=== PATIENT | male | born 1970 | race Caucasian/White ===

== ENCOUNTER 2016-10-14 22:14 | Observation (INO) | payer SELFPAY ==
--- NOTE | ~2016-10-14 | DS ---
Discharge Summary [address] [address] NAME: KAYLIE WATSON : 70 STATUS : DIS Lorri PAT#: [id number] AGE: 46 ADM/REG DATE : 10/15/16 MR#: [id number] REPORT SERV DATE: 10/17/16 DICTATED BY: FANG LAZARO DATE: 10/16/16 REPORT STATUS : Draft TRANSCRIBED BY: MODL DATE: 10/16/16 ADMISSION DATE: 10/15/2016 DISCHARGE DATE: 10/16/2016 DISCHARGE DIAGNOSES: 1. Abdominal pain, uncertain etiology, resolved. 2. Hypotension, resolved. 3. Acute kidney injury, resolved. 4. Leukocytosis, resolved. 5. Bipolar disorder, not otherwise specified. 6. 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 7. Proteinuria. 8. History of hypertension. 9. Chronic obstructive pulmonary disease. 10.Possible seizure disorder. 11.Steatohepatitis with elevated ammonia, controlled on medical therapy. 12.Irritable bowel syndrome. 13.High cholesterol. 14.High triglycerides. 15.Elevated globulins, outpatient SPE needed. OPERATIONS AND PROCEDURES: None. PRESENT ILLNESS: This is a 46-year-old white male, who was triaged in the emergency room on 10/14/2016 at 2214 hours, complaining of abdominal, back, and neck pain. After evaluation in the emergency room, he was found to have acute kidney injury. He was referred to the Hospitalist Service for admission. He was seen by Dr. Manas Raymond and admitted as described on admission history and physical examination. ADDITIONAL HISTORY: Per Dr. Raymond. PHYSICAL EXAMINATION: Per Dr. Raymond. ADMISSION LABORATORY: Per Dr. Raymond. HOSPITAL COURSE: He was admitted by Dr. Raymond with impression: 1. Abdominal pain of unclear etiology. 2. Acute kidney injury. 3. Leukocytosis. 4. Hypotension. 5. Essential hypertension. 6. Chronic obstructive pulmonary disease. 7. Hepatic steatosis. 8. Seizure disorder. 9. Anxiety and depression. Discharge Summary [address] [place]. [address] NAME: KAYLIE WATSON : 70 STATUS : DIS Lorri PAT#: [id number] AGE: 46 ADM/REG DATE : 10/15/16 MR#: [id number] REPORT SERV DATE: 10/17/16 DICTATED BY: FANG LAZARO DATE: 10/16/16 REPORT STATUS : Draft TRANSCRIBED BY: MODIsidro DATE: 10/16/16 10.Irritable bowel syndrome. HOSPITAL COURSE: He was placed in observation on . He was given crystalloid volume resuscitation. His home lisinopril was discontinued. His hospital care was assumed by the undersigned. He was seen by me on 10/15/2016 at approximately 1753 hours. At that time, he indicated that he generally did not feel well. There had been a recent family that he thought contributed to his anxiety and abdominal pain. In addition, he had a recent round of cortical steroids and antimicrobial therapy for an upper respiratory infection. At that time, he had no particular abnormalities on exam. With rehydration, his creatinine had fallen from 2.31 to 1.71. His home medications had not been started on admission. Medication reconciliation was initiated. We discussed his psychiatric history. He is followed by Dr. Corey. It was felt that further inpatient evaluation would be needed, and consultation was placed to Dr. Jarrod Younger. His other treatment was continued. His abdominal pain, at this point, had largely resolved. A CT scan of his abdomen and pelvis had been done in the emergency room and did not show any acute abnormality. It did demonstrate a fatty liver. His liver tests were normal as was a lipase at 116. He was seen by Dr. Jarrod Younger on 10/16/2016. His diagnosis was bipolar disorder, not otherwise specified, and Parkinson's caused by Haldol. He suggested holding Haldol for a week to allow the Parkinson symptoms to subside and to engage Dr. Corey in followup. He also suggested immediate Xanax followed by nighttime Xanax pending followup with Dr. Corey. He was next seen by the undersigned on 10/16/2016 at 1410 hours. He received a dose of Xanax. He thought he was back to his baseline state. His who was present agreed. He had no abdominal pain. His BUN and creatinine had fallen from 32/1.81 to 19/1.07. His white count had fallen from 12.5 to 6, and his ammonia level was 38 notably having been 120 in August of this year. At this point, the patient felt, he could easily manage at home. It is felt that he has achieved a level of improvement and stability where he can be safely discharged home and see Dr. Corey as soon as possible. He will follow up with the [facility], [facility], within one week. Weight loss was encouraged given his medical comorbidities. DISCHARGE MEDICATIONS: His discharge medications are as follows: Xanax 1 mg at bedtime; no Haldol; lactulose 45 mL two to three times daily to maintain greater or equal to two soft stools per day; Keppra 750 mg twice daily; Claritin 10 mg daily; Mevacor 20 mg at bedtime; Prilosec 20 mg twice daily; Seroquel 400 mg at bedtime; ProAir two puffs as needed; Discharge Summary [address] [address] NAME: KAYLIE WATSON : 70 STATUS : DIS Lorri PAT#: [id number] AGE: 46 ADM/REG DATE : 10/15/16 MR#: [id number] REPORT SERV DATE: 10/17/16 DICTATED BY: FANG LAZARO DATE: 10/16/16 REPORT STATUS : Draft TRANSCRIBED BY: CHONG DATE: 10/16/16 Symbicort two puffs twice daily; Flonase nasal spray daily as needed; OTC niacin tablet. He was asked to hold Prinivil until primary care followup next week with a BMP. DD/CHONG Fang Lazaro M.D. / [id number] CC: Bobbi High, ZURDO Corey MD [facility]
--- NOTE | ~2016-10-14 | CN ---
Consultation Report [facility] [address] [place]. [address] NAME: KAYLIE WATSON : 70 STATUS : ADM Lorri PAT#: [id number] AGE: 46 ADM/REG DATE : 10/15/16 MR#: [id number] REPORT SERV DATE: 10/16/16 DICTATED BY: JARROD BLACK DATE: 10/16/16 REPORT STATUS : Draft TRANSCRIBED BY: MODL DATE: 10/16/16 PSYCHIATRIC CONSULTATION DATE OF CONSULTATION: 10/16/2016 I reviewed this patient's current and old medical records. I discussed his status with Dr. Lazaro who is his current hospitalist. HISTORY OF PRESENT ILLNESS: He was admitted with abdominal pain. This has been an ongoing issue for a year or more. I was consulted to address his anxiety and depression. PAST PSYCHIATRIC HISTORY: I previously saw him in consultation on 08/07/2015, when he was again admitted with abdominal pain. He gave a history of recurring depressions, easily provoked, and free-floating anger for many years. Over the years, he has been on a variety of psychotropic medications all of which appear to have questionable or limited efficacy. Currently, he is taking Haldol 5 mg q.a.m., Seroquel 400 mg at bedtime, and Keppra 750 mg b.i.d. He apparently has a questionable seizure disorder. At this time, he is reporting that his anxiety is particularly severe and that it has been so for the past few days or weeks. He said he is afraid to fall asleep at night because he fears he will not wake up. SOCIAL HISTORY: He lives with his significant other, Denia. They have been together for over 20 years. He has two sons. FAMILY HISTORY: His mother suffered from mood swings. There are multiple members of the family with alcoholism. His maternal grandfather committed suicide. MENTAL STATUS: He was cooperative in attitude. I noticed that his arms were stiff and tremulous. His mood was very anxious. His affect was constricted in range. His thinking was logical. He had no delusions. He had no hallucinations. He was oriented to time, place, and person. DIAGNOSIS: Bipolar disorder, NOS. RECOMMENDATIONS: I instructed him to hold the Haldol for about a week or so to allow the parkinsonism to subside. If he is not feeling better by that time, he should call Dr. Corey's office and try to get an early followup psychiatric appointment. In the meantime, I will start him on Xanax 1 mg p.o. at bedtime and I will give him a prescription for #10. He can be discharged to home from a psychiatric viewpoint. BREN/CHONG Jarrod Black M.D. Consultation Report [place] [id number] [place]. [address] NAME: KAYLIE WATSON : 70 STATUS : ADM Lorri PAT#: [id number] AGE: 46 ADM/REG DATE : 10/15/16 MR#: [id number] REPORT SERV DATE: 10/16/16 DICTATED BY: JARROD BLACK DATE: 10/16/16 REPORT STATUS : Draft TRANSCRIBED BY: CHONG DATE: 10/16/16 / [id number] CC: Bobbi High NP
--- NOTE | ~2016-10-14 | HP ---
History And Physical [facility] [address] [facility] [place]. [address] NAME: KAYLIE HARRISON : 70 STATUS : ADM Lorri PAT#: [id number] AGE: 46 ADM/REG DATE : 10/15/16 MR#: [id number] REPORT SERV DATE: 10/15/16 DICTATED BY: MANAS MONTERO DATE: 10/15/16 REPORT STATUS : Draft TRANSCRIBED BY: MODL DATE: 10/15/16 DATE OF ADMISSION: 10/15/2016 CHIEF COMPLAINT: Abdominal pain. HISTORY OF PRESENT ILLNESS: This is a 46-year-old male with a history of hepatic steatohepatosis, history of seizure disorder, and COPD, who presents to the emergency room at [facility] with abdominal pain. History is obtained from the patient, his who is at bedside, and reviewing data available on the [employer] system. According to Mr. Harrison, he has been having this abdominal pain for almost two years or so. He has had prior admissions to [facility] in [place], [place] and has had workup for all his problems. This time, he started having abdominal pain a few days ago, which was progressively worsening. Today, he was in [place] visiting some relatives and the pain became unbearable and they decided to bring him to the emergency room to be evaluated. His abdominal pain is mostly in the right upper quadrant and epigastric region, not radiating anywhere else. According to him, it has been constant without any aggravating or relieving factors. He does have a history of irritable bowel syndrome. In the emergency room, initial workup revealed a CT of the abdomen showing no acute abnormality. Chest x-ray was unremarkable. Urinalysis was unremarkable as well. He did have mild leukocytosis along with an acute kidney injury and on presentation was hypotensive. This resolved quickly with some volume replacement. Hospitalist Service is asked to admit him for further evaluation and treatment. At the time of my evaluation, he denied any chest pain, palpitations, or orthopnea. He had no cough, hemoptysis, night sweats, or weight loss. He denied any recent falls or loss of consciousness. No history of fevers or chills at home. He denied any nausea, vomiting, or diarrhea. No history of hematemesis, hematochezia, or hematuria. No other history of recent travel or exposures other than those mentioned above. PAST MEDICAL HISTORY: Significant for history of hypertension, COPD, seizure disorder, depression and anxiety, steatohepatosis, irritable bowel syndrome. SOCIAL HISTORY: He has about a 30 to 35 pack year history of smoking and continues to do so. Denied any alcohol use. He does smoke marijuana, although he says his last use was about a month ago. He is currently applying for disability. FAMILY HISTORY: Noncontributory. MEDICATIONS: At home were reviewed by me in the chart today and reordered by me. REVIEW OF SYSTEMS: As in history of present illness. All other systems were reviewed in detail and are quite History And Physical [address] [address] NAME: KAYLIE HARRISON : 70 STATUS : ADM Lorri PAT#: [id number] AGE: 46 ADM/REG DATE : 10/15/16 MR#: [id number] REPORT SERV DATE: 10/15/16 DICTATED BY: MANAS MONTERO DATE: 10/15/16 REPORT STATUS : Draft TRANSCRIBED BY: CHONG DATE: 10/15/16 unremarkable. PHYSICAL EXAMINATION: GENERAL: This is a pleasant 46-year old, not in any acute distress. He is alert, awake, oriented to time, place, and person. HEENT: His head is atraumatic, normocephalic. Pupils are equal, reacting to light and accommodating. External ocular muscles are intact. Membranes are moist and pink. Sclerae are nonicteric. NECK: Supple with no jugular venous distention, lymphadenopathy, or thyromegaly. LUNGS: Clear to auscultation with no wheezes, rubs, or crackles. HEART: Heart sounds were regular with no murmurs, rubs, or gallops. ABDOMEN: Soft, nontender. Bowel sounds are present. There is no guarding or rigidity. There is no organomegaly. EXTREMITIES: Showed no cyanosis, clubbing, or edema. NEUROLOGIC: Grossly intact. No focal sensory or motor deficits. Higher functions appeared intact. Gait was not examined. VITAL SIGNS: Today showed a temperature of 97.9, pulse 116, respirations 22 a minute, blood pressure was 86/55 upon arrival. Oxygen saturations were 94% breathing 2 L of oxygen via nasal cannula. LABORATORY DATA: Today showed a sodium of 135, potassium 5, chloride 101, CO2 of 21. BUN was 32 with a creatinine of 2.31, which is up from his baseline of 0.9 to 1. His glucose was 128 today. CBC showed a white blood cell count of 12,500; normal hemoglobin, hematocrit, and platelet count. His lactate today was 0.7 today. Urinalysis was grossly unremarkable today. Films of the CT scan of the abdomen and pelvis were reviewed by me on the PACS today and official radiology comments were also reviewed. Per radiologist, there is no acute intraabdominal or intrapelvic pathology at this time. Chest x-ray was reviewed by me on the PACS today and interpreted by me. Today's films were compared to prior films available. There is no acute pulmonary process at this time. IMPRESSION: 1. Abdominal pain of unclear etiology. 2. Acute kidney injury. 3. Leukocytosis. 4. Hypotension. 5. Essential hypertension. 6. Chronic obstructive pulmonary disease. 7. Hepatic steatosis. 8. Seizure disorder. 9. Anxiety and depression. 10.Irritable bowel syndrome. PLAN: We will admit Mr. Harrison to the Hospitalist Service with telemetry for a 24-hour observation period. We will start him on IV fluids for aggressive volume replacement. Follow chemistry, electrolytes in the morning and replace as needed. His hypotension has resolved since his arrival here and he was given fluid bolus. Meanwhile, for his leukocytosis, we will obtain cultures, but hold off on antibiotics at this time. I do not History And Physical [address] [address] NAME: KAYLIE HARRISON : 70 STATUS : ADM Lorri PAT#: [id number] AGE: 46 ADM/REG DATE : 10/15/16 MR#: [id number] REPORT SERV DATE: 10/15/16 DICTATED BY: MANAS MONTERO DATE: 10/15/16 REPORT STATUS : Draft TRANSCRIBED BY: MODL DATE: 10/15/16 see any focus of infection. We will start him on bronchodilator treatments at this time and continue supplemental oxygen therapy. We will continue all other medications and treatments at this time as well. He will be placed on unfractionated heparin for DVT prophylaxis while here. I have discussed the above plans with the patient and his . Questions were answered and they were agreeable to the above recommendations. Hospitalist Service will be following him during his stay here. Shared the results of the CT scan of the abdomen and that there was nothing abnormal. MR/MODL Manas Montero M.D. / [id number] CC: Bobbi Pedroza NP
[~2016-10-14 22:14] MED LIST: *UNABLE3; ADVAIR250 INH; ALAVERT10 MG PO; ASAB PO; ASPERCREME102 EX; ATV1 PO; BENTYL20 PO; CONSTULOSE PO; FISH-EPA1000 MG PO; KEPPRA500 PO; MEVACOR PO; NEUR300 PO; NORCO1 TA1 PO; PRILO PO; PRIN20 PO; PROAIR HFA INH; PROZAC PO; VIB100 PO; ZESTORETIC PO
[2016-10-14 22:42] LABS: BASOPHILS 0.2 %; BASOPHILS ABSOLUTE 0.03 10/3/uL (0.0-0.16); EOSINOPHILS 0.4 %; EOSINOPHILS ABSOLUTE 0.05 10/3/uL (0.0-0.53); ER CBC TAT 0 Hrs 11 Mins; HEMATOCRIT 48.3 % (40.0-51.0); HEMOGLOBIN 17.3 g/dL (13.6-17.8); IMMATURE GRANULOCYTES 0.4 %; IMMATURE GRANULOCYTES ABSOLUTE 0.05 10/3/uL (0.0-0.11); LYMPHOCYTES 16.9 %; LYMPHOCYTES ABSOLUTE 2.12 10/3/uL (0.67-4.30); MANUAL DIFF NO %; MEAN CORPUS HGB CONC 35.8 g/dL (32.0-36.0); MEAN CORPUSCULAR HEMOGLOB 33.3 pg (26.0-34.0); MEAN CORPUSCULAR VOLUME 93.1 fL (80-100); MEAN PLATELET VOLUME 10.5 fL (9.2-13.0); MONOCYTES 7.9 %; MONOCYTES ABSOLUTE 0.99 10/3/uL (0.21-1.20); NEUTROPHILS 74.2 %; NEUTROPHILS ABSOLUTE 9.28 10/3/uL (2.02-8.40); PLATELET COUNT 255 10/3/uL (150-400); RBC DISTRIBUTION WIDTH 13.6 % (12.0-16.0); RED CELL COUNT 5.19 10/6/uL (4.7-6.1); WHITE BLOOD CELLS 12.5 10/3/uL (4.5-10.5)
[2016-10-14 22:52] LABS: ALBUMIN 4.6 G/DL (3.5-5.0); ALKALINE PHOSPHATASE 100 U/L (45-117); CALCIUM, SERUM 9.1 MG/DL (8.5-10.4); CHLORIDE, SERUM 101 MMOL/L (96-112); CO2 (CARBON DIOXIDE) 21 MMOL/L (24-34); GFR AFRICAN AMERICAN 38 ML/MIN (>=60); GFR NON AFRICAN AMERICAN 33 ML/MIN (>=60); GLOBULIN 4.4 G/DL (2.5-4.1); GLUCOSE, SERUM 128 MG/DL (60-99); SGOT(AST) 20 U/L (5-40); SGPT(ALT) 45 U/L (5-65); SODIUM, SERUM 135 MMOL/L (135-148); TOTAL BILIRUBIN 0.4 MG/DL (0-1.2)
[2016-10-14 22:53] LABS: ALBUMIN 4.6 G/DL (3.5-5.0); ALKALINE PHOSPHATASE 100 U/L (45-117); SGOT(AST) 19 U/L (5-40); SGPT(ALT) 47 U/L (5-65); TOTAL BILIRUBIN 0.9 MG/DL (0-1.2); TOTAL PROTEIN 8.9 G/DL (6.0-8.5)
[2016-10-14 22:54] LABS: BUN (BLOOD UREA NITROGEN) 32 MG/DL (6-23); CREATININE 2.31 MG/DL (0.70-1.30); DIRECT BILIRUBIN < 0.1 MG/DL (0.0-0.4); INDIRECT BILIRUBIN(NOT ORDER) 0.8 MG/DL (0.1-0.9)
[2016-10-15 02:26] LABS: ASCORBIC ACID (UR NOT ORDER) NEG (NEG); BILIRUBIN, URINE NEGATIVE (NEG); ER URINALYSIS TAT 0 Hrs 00 Mins; KETONE, URINE NEGATIVE (NEG); LEUKOCYTE ESTERASE(NOT OR NEG (NEG); NITRITE (URINE) NEG (NEG); WBC (NOT ORDERED) (RFLEX) 4 (0-5)
[2016-10-15] MEDS ORDERED: SYMBICORT 160/41 INH INH (02:26)
[2016-10-15] MEDS ORDERED: CLARIT10 PO (02:26)
[2016-10-15] MEDS ORDERED: PRILOSEC OTC20 MG PO (02:26)
[2016-10-15] MEDS ORDERED: PRIN10 PO (02:27)
[2016-10-15] MEDS ORDERED: KEPPRA750 MG PO (02:27)
[2016-10-15 02:28] LABS: LACTATE 0.7 MMOL/L (0.3-2.4)
[2016-10-15] MEDS ORDERED: H5 PO (02:29)
[2016-10-15] MEDS ORDERED: MEVACOR PO (02:29)
[2016-10-15] MEDS ORDERED: PROAIR HFA INH (02:30)
[2016-10-15] MEDS ORDERED: FLONASE NAS (02:30)
[2016-10-15] MEDS ORDERED: SEROQUEL400 MG PO (02:31)
[2016-10-15] MEDS ORDERED: SPIRIVA INH (02:31)
[2016-10-15] MEDS ORDERED: CONSTULOSE PO (02:32)
[2016-10-15] MEDS ORDERED: NIACIN OTC PO (02:32)
[2016-10-15] MEDS ORDERED: OMNICEF300 PO (02:34)
[2016-10-15] MEDS ORDERED: [UNRECOGNIZED DRUG - REMARK] (02:34)
[2016-10-15 08:35] LABS: BUN (BLOOD UREA NITROGEN) 32 MG/DL (6-23); CHLORIDE, SERUM 108 MMOL/L (96-112); CO2 (CARBON DIOXIDE) 22 MMOL/L (24-34); POTASSIUM, SERUM 4.9 MMOL/L (3.5-5.3); SODIUM, SERUM 137 MMOL/L (135-148)
[2016-10-15 08:39] LABS: CALCIUM, SERUM 8.1 MG/DL (8.5-10.4); CREATININE 1.81 MG/DL (0.70-1.30); GFR AFRICAN AMERICAN 51 ML/MIN (>=60); GFR NON AFRICAN AMERICAN 44 ML/MIN (>=60); GLUCOSE, SERUM 97 MG/DL (60-99)
[2016-10-15 11:02] LABS: BASOPHILS 0.1 %; BASOPHILS ABSOLUTE 0.01 10/3/uL (0.0-0.16); EOSINOPHILS ABSOLUTE 0.08 10/3/uL (0.0-0.53); HEMOGLOBIN 14.3 g/dL (13.6-17.8); IMMATURE GRANULOCYTES 0.3 %; IMMATURE GRANULOCYTES ABSOLUTE 0.02 10/3/uL (0.0-0.11); LYMPHOCYTES 23.7 %; LYMPHOCYTES ABSOLUTE 1.88 10/3/uL (0.67-4.30); MEAN CORPUS HGB CONC 35.2 g/dL (32.0-36.0); MEAN CORPUSCULAR HEMOGLOB 32.9 pg (26.0-34.0); MEAN CORPUSCULAR VOLUME 93.3 fL (80-100); MONOCYTES 9.1 %; MONOCYTES ABSOLUTE 0.72 10/3/uL (0.21-1.20); NEUTROPHILS 65.8 %; NEUTROPHILS ABSOLUTE 5.23 10/3/uL (2.02-8.40); PLATELET COUNT 190 10/3/uL (150-400); RED CELL COUNT 4.35 10/6/uL (4.7-6.1); WHITE BLOOD CELLS 7.9 10/3/uL (4.5-10.5)
[2016-10-15 11:07] LABS: HEMATOCRIT 40.6 % (40.0-51.0); MANUAL DIFF NO %
[2016-10-15 11:10] LABS: BUN (BLOOD UREA NITROGEN) 33 MG/DL (6-23); C-REACTIVE PROTEIN 16.3 MG/L (<8.0); CALCIUM, SERUM 8.3 MG/DL (8.5-10.4); CHLORIDE, SERUM 107 MMOL/L (96-112); CO2 (CARBON DIOXIDE) 23 MMOL/L (24-34); CREATININE 1.71 MG/DL (0.70-1.30); GFR AFRICAN AMERICAN 54 ML/MIN (>=60); GFR NON AFRICAN AMERICAN 47 ML/MIN (>=60); GLUCOSE, SERUM 142 MG/DL (60-99); POTASSIUM, SERUM 4.4 MMOL/L (3.5-5.3); SODIUM, SERUM 138 MMOL/L (135-148)
[2016-10-16 06:36] LABS: HEMATOCRIT 39.2 % (40.0-51.0); HEMOGLOBIN 13.3 g/dL (13.6-17.8); MEAN CORPUS HGB CONC 33.9 g/dL (32.0-36.0); MEAN CORPUSCULAR HEMOGLOB 32.8 pg (26.0-34.0); MEAN PLATELET VOLUME 10.3 fL (9.2-13.0); PLATELET COUNT 188 10/3/uL (150-400); RBC DISTRIBUTION WIDTH 13.6 % (12.0-16.0); RED CELL COUNT 4.05 10/6/uL (4.7-6.1)
[2016-10-16 06:37] LABS: MANUAL DIFF YES %; MEAN CORPUSCULAR VOLUME 96.8 fL (80-100)
[2016-10-16 06:52] LABS: CALCIUM, SERUM 7.7 MG/DL (8.5-10.4); CHLORIDE, SERUM 109 MMOL/L (96-112); CO2 (CARBON DIOXIDE) 21 MMOL/L (24-34); HDL CHOLESTEROL 25 MG/DL (> 39); POTASSIUM, SERUM 4.6 MMOL/L (3.5-5.3); SODIUM, SERUM 138 MMOL/L (135-148)
[2016-10-16 06:54] LABS: BUN (BLOOD UREA NITROGEN) 19 MG/DL (6-23); CHOL/HDL RATIO(NOT ORDER) 7.4 (0-5); CHOLESTEROL 184 MG/DL (< 200); CREATININE 1.07 MG/DL (0.70-1.30); GFR AFRICAN AMERICAN 96 ML/MIN (>=60); GFR NON AFRICAN AMERICAN 83 ML/MIN (>=60); GLUCOSE, SERUM 76 MG/DL (60-99); NON-HDL CHOLESTEROL 159 MG/DL (< 160); TRIGLYCERIDE 538 MG/DL (< 150)
[2016-10-16 07:33] LABS: BAND NEUTROPHILS 2 %; EOSINOPHILS 2 %; EOSINOPHILS ABSOLUTE (CALC) 0.12 10/3/uL (0.0-0.53); LYMPHOCYTES 32 %; LYMPHOCYTES ABSOLUTE (CALC) 1.92 10/3/uL (0.67-4.30); MONOCYTES 10 %; NEUTROPHILS ABSOLUTE (CALC) 3.36 10/3/uL (2.02-8.40); PLATELET ESTIMATE ADQ (ADEQUATE); RBC MORPHOLOGY NORM (NORMAL); SEGMENTED NEUTROPHIL (0) 54 %; TOTAL NUCLEATED CELLS 100
[2016-10-16] MEDS ORDERED: XANAX1 MG PO (15:03)
== END 2016-10-16 18:14 | disposition home or self-care (01) ==
LOC: ER 22:14 → 6NO 10-15 03:42
PROVIDERS: Emergency Medicine; Internal Medicine; Specialist
DX: R10.9 Unspecified abdominal pain (principal); I95.9 Hypotension, unspecified; N17.9 Acute kidney failure, unspecified; J44.9 Chronic obstructive pulmonary disease, unspecified; K58.9 Irritable bowel syndrome, unspecified; E78.00 Pure hypercholesterolemia, unspecified; I10 Essential (primary) hypertension; G40.909 Epilepsy, unspecified, not intractable, without status epilepticus; F41.9 Anxiety disorder, unspecified; F32.9 Major depressive disorder, single episode, unspecified; K21.9 Gastro-esophageal reflux disease without esophagitis; K44.9 Diaphragmatic hernia without obstruction or gangrene; D72.829 Elevated white blood cell count, unspecified; Z79.899 Other long term (current) drug therapy; Z88.8 Allergy status to other drugs, medicaments and biological substances; Z90.49 Acquired absence of other specified parts of digestive tract
CPT/HCPCS: 71010; 74176; 80048; 80053; 80061; 80076; 81001; 82140; 83605; 83690; 83735; 84100; 84145; 85025; 86140; 87040; 94640; 96360; 96361; 96372; 96374; 96375; 96376; 99285; A9270-GY; G0378; J1980; J2405